=== PATIENT | female | born 1985 | race Caucasian/White ===

== ENCOUNTER 2016-12-16 00:18 | Emergency (ER) | payer OTHER ==
[2016-12-16 00:18] VITALS: BMI 35.7
[2016-12-16 00:45] VITALS: TEMP 98.6
--- NOTE | 2016-12-16 00:57 | ED PDOC ---
Arrival/HPI - General Chief Complaint: High Blood Pressure Time Seen by Provider: 12/16/16 00:36 Historian: Patient - History of Present Illness Narrative History of Present Illness (Text): 12/16/16 00:52 A 31 year old female, whose past medical history includes diabetes and hypertension, presents to the emergency department complaining of hypertension, dizziness, and mild headache since earlier today. Patient reports experiencing dizziness and a mild headache during work. Patient mentions she takes blood pressure medications prescribed to her and blood pressure has improved since episode. Patient denies of any numbness/weakness, or any other complaints. 12/16/16 02:45 Time/Duration: Other (earlier today) Symptom Onset: Sudden Symptom Course: Improving Activities at Onset: Rest, Light Context: Work Past Medical History - Provider Review Nursing Documentation Reviewed: Yes - Infectious Disease Hx of Infectious Diseases: None - Tetanus Immunization Tetanus Immunization: Unknown - Cardiac Hx Cardiac Disorders: Yes Hx Hypertension: Yes - Pulmonary Hx Respiratory Disorders: Yes Hx Asthma: Yes - Neurological Hx Neurological Disorder: Yes Hx Migraine: Yes - HEENT Hx HEENT Disorder: No - Renal Hx Renal Disorder: No - Endocrine/Metabolic Hx Endocrine Disorders: Yes Hx Diabetes Mellitus Type 2: Yes Other/Comment: NIDDM - Hematological/Oncological Hx Blood Disorders: Yes Hx Anemia: Yes Other/Comment: pt receives iron infusions; last infusion yesterday 08-19-14 - Integumentary Hx Dermatological Disorder: No - Musculoskeletal/Rheumatological Hx Musculoskeletal Disorders: No Other/Comment: CARPAL TUNNEL - Gastrointestinal Hx Gastrointestinal Disorders: Yes Hx Gastritis: Yes - Genitourinary/Gynecological Hx Genitourinary Disorders: Yes Hx Urinary Tract Infection: Yes - Psychiatric Hx Psychophysiologic Disorder: Yes Hx Anxiety: Yes Hx Depression: Yes Hx Substance Use: No - Past Surgical History Past Surgical History: No Previous - Anesthesia Hx Anesthesia: Yes Hx Anesthesia Reactions: No Hx Malignant Hyperthermia: No - Suicidal Assessment Feels Threatened In Home Enviroment: No Family/Social History - Physician Review Nursing Documentation Reviewed: Yes Family/Social History: No Known Family HX Smoking Status: Never Smoked Hx Alcohol Use: No Hx Substance Use: No Hx Substance Use Treatment: No Allergies/Home Meds Allergies/Adverse Reactions: Allergies seasonal Allergy (Mild, Uncoded 12/16/16 00:47) CONGESTION NKA Home Medications: Home Meds Medication Instructions Recorded Confirmed Empagliflozin [Jardiance] 25 mg PO DAILY 12/16/16 12/16/16 Metformin ER [Glucophage XR] 1,000 mg PO DAILY 12/16/16 12/16/16 Valsartan/Hydrochlorothiazide 1 tab PO DAILY 12/16/16 12/16/16 [Valsartan and Hydrochlorothiazide 25 mg-320 M] Review of Systems - Physician Review All systems were reviewed & negative as marked: Yes - Review of Systems Constitutional: absent: Fevers, Night Sweats Respiratory: absent: SOB Cardiovascular: absent: Chest Pain Gastrointestinal: absent: Abdominal Pain, Diarrhea, Nausea, Vomiting Neurological: Headache, Dizziness. absent: Other (numbness/weakness) Physical Exam Vital Signs Reviewed: Yes Vital Signs Temp Pulse Resp BP Pulse Ox 12/16/16 02:37 80 18 139/74 100 12/16/16 00:44 98.6 F 72 17 160/88 H 98 12/16/16 00:39 79 19 160/88 H 100 Temperature: Afebrile Blood Pressure: Hypertensive Pulse: Regular Respiratory Rate: Normal Appearance: Positive for: Well-Appearing Pain Distress: None Mental Status: Positive for: Alert and Oriented X 3 Finger Stick Blood Glucose: 140 - Systems Exam Head: Present: Atraumatic, Normocephalic Pupils: Present: PERRL Extroacular Muscles: Present: EOMI Conjunctiva: Present: Normal Mouth: Present: Moist Mucous Membranes Neck: Present: Normal Range of Motion Respiratory/Chest: Present: Clear to Auscultation, Good Air Exchange. No: Respiratory Distress, Accessory Muscle Use Cardiovascular: Present: Regular Rate and Rhythm, Normal S1, S2. No: Murmurs Abdomen: Present: Normal Bowel Sounds. No: Tenderness, Distention, Peritoneal Signs Back: Present: Normal Inspection Upper Extremity: Present: Normal Inspection. No: Cyanosis, Edema Lower Extremity: Present: Normal Inspection. No: Edema Neurological: Present: GCS=15, CN II-XII Intact, Speech Normal, Motor Func Grossly Intact, Normal Sensory Function, Normal 2Pt Descrimination Skin: Present: Warm, Dry, Normal Color. No: Rashes Psychiatric: Present: Alert, Oriented x 3, Normal Insight, Normal Concentration Medical Decision Making ED Course and Treatment: 12/16/16 00:56 Impression: 31 year old female with hypertension, dizziness, and headache. Benign physical exam, neuro exam intact. Plan: -- EKG -- Chest X-ray -- Urinalysis -- Labs -- Zofran -- Reassess and disposition Prior Visits: Notes and results from previous visits were reviewed. 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 Patient was discharge home. Progress Notes: 12/16/16 01:22 EKG: Ordered, reviewed, and independently interpreted the EKG. Rate : 73 BPM Rhythm : NSR Interpretation : No ST-segment elevations or depressions, no T-wave inversions, normal intervals. Comparison : No previous EKG for comparison. 12/16/16 02:47 pt reasseseD: pt rosalio saunders er in nad. observed on phone in nad. b/p improved. labs cxr neg as read by me. pt asking for dc - Lab Interpretations Lab Results: 12/16/16 01:15 12/16/16 01:15 Lab Results 12/16/16 01:15: Urine HCG, Qual Negative 12/16/16 01:15: Sodium 137, Potassium 3.9, Chloride 98, Carbon Dioxide 29, Anion Gap 14, BUN 14, Creatinine 0.6, Est GFR ( Amer) > 60, Est GFR (Non- Af Amer) > 60, Random Glucose 134 H, Calcium 9.9, Magnesium 2.0, Total Bilirubin 0.4, AST 21, ALT 27, Alkaline Phosphatase 52, Lactate Dehydrogenase 394, Total Creatine Kinase 76, Troponin I < 0.01, Total Protein 7.3, Albumin 4.4 , Globulin 2.9, Albumin/Globulin Ratio 1.5 12/16/16 01:15: Urine Color Straw, Urine Appearance Clear, Urine pH 6.5, Ur Specific [place] <= 1.005, Urine Protein Negative, Urine Glucose (UA) >=1000, Urine Ketones Negative, Urine Blood Negative, Urine Nitrate Negative, Urine Bilirubin Negative, Urine Urobilinogen 0.2, Ur Leukocyte Esterase Negative 12/16/16 01:15: PT 10.7, INR 0.99, APTT 27.1 12/16/16 01:15: WBC 8.1, RBC 4.60, Hgb 13.0, Hct 35.5 L, MCV 77.2 L, MCH 28.3, MCHC 36.6, RDW 14.1, Plt Count 288, MPV 9.1, Gran % 53.6, Lymph % (Auto) 38.3 H , Randall % (Auto) 6.5 H, Eos % (Auto) 1.2 L, Baso % (Auto) 0.4, Gran # 4.36, Lymph # 3.1, Randall # 0.5, Eos # 0.1, Baso # 0.03 I have reviewed the lab results: Yes - RAD Interpretation Radiology Orders: 12/16/16 00:48 CHEST PORTABLE [RAD] Stat - Medication Orders Current Medication Orders: Discontinued Medications Ondansetron HCl (Zofran Inj) 4 mg IVP STAT STA Stop: 12/16/16 00:50 Last Admin: 12/16/16 01:22 Dose: 4 mg - Scribe Statement The provider has reviewed the documentation as recorded by the Pantera Medina Provider Scribe Attestation: All medical record entries made by the Arlyniboswaldo were at my direction and personally dictated by me. I have reviewed the chart and agree that the record accurately reflects my personal performance of the history, physical exam, medical decision making, and the department course for this patient. I have also personally directed, reviewed, and agree with the discharge instructions and disposition. Disposition/Present on Arrival - Present on Arrival Any Indicators Present on Arrival: No History of DVT/PE: No History of Uncontrolled Diabetes: No Urinary Catheter: No History of Decub. Ulcer: No History Surgical Site Infection Following: None - Disposition Have Diagnosis and Disposition been Completed?: Yes Diagnosis: Dizziness, Headache Disposition: HOME/ ROUTINE Disposition Time: 02:48 Condition: STABLE Discharge Instructions (ExitCare): Hypertension (ED), Dizziness (ED), Acute Headache (ED) Additional Instructions: please follwo up with your doctor. return to er with worsening symptoms or concerns. Referrals: Flor Mosqueda DO [Primary Care Provider] - Follow up with primary [facility] [Outside] - Follow up with primary [facility] [place] [Outside] - Follow up with primary Binu Harman MD [Staff Provider] - Follow up with primary Forms: [email or web address] (Turkmen)
[2016-12-16 01:33] LABS: BASO # 0.03 K/mm3 (0.0-2.0); BASO % 0.4 % (0.0-3.0); EOS # 0.1 (0.0-0.7); EOS % 1.2 % (1.5-5.0); GRAN # 4.36 (1.4-6.5); GRAN % 53.6 % (50.0-68.0); LYMPH # 3.1 (1.2-3.4); LYMPH % 38.3 % (22.0-35.0); MEAN CELL VOLUME 77.2 fl (80.0-105.0); MEAN CORPUSCULAR HEMOGLOBIN 28.3 pg (25.0-35.0); MEAN CORPUSCULAR HGB CONC 36.6 g/dl (31.0-37.0); MEAN PLATELET VOLUME 9.1 fl (7.0-11.0); MONO # 0.5 (0.1-0.6); MONO % 6.5 % (1.0-6.0); PLATELET COUNT 288 10^3/uL (120.0-450.0); RED CELL DISTRIBUTION WIDTH 14.1 % (11.5-14.5); WHITE BLOOD COUNT 8.1 10^3/ul (4.5-11.0)
[2016-12-16 01:40] LABS: ALB/GLOB RATIO 1.5 (1.1-1.8); ALBUMIN 4.4 g/dL (3.0-4.8); ALT/SGPT 27 U/L (7-56); AST/SGOT 21 U/L (15-39); BLOOD UREA NITROGEN 14 mg/dL (7-21); CALCIUM 9.9 mg/dL (8.4-10.5); GFR AFRICAN-AMERICAN > 60; GFR NON-AFRICAN AMERICAN > 60
[2016-12-16 01:45] LABS: PH,URINE 6.5 (4.7-8.0); URINE BILIRUBIN NEGATIVE (NEGATIVE); URINE BLOOD NEGATIVE (NEGATIVE); URINE GLUCOSE (UA) >=1000 mg/dL (NEGATIVE); URINE LEUKOCYTE ESTERASE NEGATIVE Leu/uL (NEGATIVE); URINE NITRATE NEGATIVE (NEGATIVE); URINE PROTEIN NEGATIVE mg/dL (<30 mg/dL); URINE UROBILINOGEN 0.2 E.U./dL (<1 E.U./dL)
[2016-12-16 01:52] LABS: INR 0.99 (0.93-1.08); PARTIAL THROMBOPLASTIN TIME 27.1 Seconds (23.7-30.8); PROTHROMBIN TIME 10.7 Seconds (9.9-11.8); TROPONIN I < 0.01 ng/mL; URINE APPEARANCE CLEAR (CLEAR); URINE COLOR STRAW (YELLOW)
[2016-12-16 02:38] VITALS: BP 139/74; PULSE 80; RESP 18; O2SAT 100
--- NOTE | 2016-12-16 10:25 | RAD ---
HISTORY: Shortness of breath COMPARISON: 11/12/2014. FINDINGS: LUNGS: No active pulmonary disease. PLEURA: No significant pleural effusion identified, no pneumothorax apparent. CARDIOVASCULAR: Normal. OSSEOUS STRUCTURES: No significant abnormalities. VISUALIZED UPPER ABDOMEN: Normal. OTHER FINDINGS: None. IMPRESSION: No active disease. No significant interval change compared to the prior examination(s). Concordant results with the preliminary interpretation rendered by the emergency department physician procedure.
--- NOTE | 2016-12-16 18:53 | CARD ---
APPROVED REPORT EKG Measurement Heart [id number] <Conclusion> Normal sinus rhythm Possible Left atrial enlargement Possible Anterior infarct, age undetermined Abnormal ECG
== END 2016-12-16 03:05 | disposition home or self-care (01) ==
LOC: ED 00:18
DX: R51 Headache (principal); R42 Dizziness and giddiness; I10 Essential (primary) hypertension; E11.9 Type 2 diabetes mellitus without complications
CPT/HCPCS: 71010; 80053; 81003; 82550; 82948; 83615; 83735; 84484; 84703; 85025; 85610; 85730; 93005; 96374; 99284; J2405